=== PATIENT | male | born 1960 | race Caucasian/White ===

== ENCOUNTER → 2017-05-02 | Outpatient (CLI) | payer BC, OTHER ==
--- NOTE | 2017-05-02 23:37 | MRI ---
EXAM DATE: 05/02/2017 9:54 AM CDT. PROCEDURE: MR BRAIN WITHOUT THEN WITH IV CONTRAST. INDICATION: Multiple sclerosis. COMPARISON: None. TECHNIQUE: Multiplanar multisequence images of the brain were acquired after the administration of intravenous contrast. FINDINGS: No acute infarct or intracranial hemorrhage. No mass, mass effect, or midline shift. No abnormal intracranial enhancement. Small scattered foci of T2/FLAIR hyperintensity identified within the subcortical white matter of the right superior frontal gyrus, right frontal lobe, within the right splenium corpus callosum, and scattered in the left frontal lobe. No hydrocephalus. Internal carotid and vertebrobasilar flow voids are identified. Unremarkable orbits, paranasal sinuses, mastoid air cells, and calvarium. IMPRESSION: Minimal scattered white matter changes are nonspecific and may be seen with the given history of multiple sclerosis or with chronic microvascular angiopathy. No abnormal intracranial enhancement. Electronically signed by: Joe Regalado MD 05/02/2017 11:36 PM CDT
--- NOTE | 2017-05-02 23:45 | MRI ---
EXAM DATE: 05/02/2017 9:54 AM CDT. PROCEDURE: MR CERVICAL SPINE WITHOUT IV CONTRAST. INDICATION: Multiple sclerosis. COMPARISON: None. TECHNIQUE: Multiplanar T1 and T2 MRI images of the cervical were acquired without administration of intravenous contrast. FINDINGS: There is straightening of the normal cervical lordosis. The cervical vertebral bodies demonstrate normal height and stature. Moderate intervertebral disc space height loss C6-C7. Mild disc space height loss in the remainder of the cervical spine. Degenerative endplate changes C5-C6. Otherwise normal marrow signal. The cervical cord demonstrates normal signal and morphology. C2-C3: No significant disc bulge. No spinal canal or neural foraminal narrowing. C3-C4: Uncovertebral spurring and mild facet arthropathy contributes to moderate left foraminal stenosis. No significant right foraminal stenosis. C4-C5: Small central disc protrusion with a small annular fissure. No spinal canal stenosis. There is some edema within the left facet joint at this level likely related to degenerative facet arthropathy. No foraminal stenosis C5-C6: Disc bulge with osteophytic spurring effacing the ventral sac resulting in moderate spinal canal stenosis. Uncovertebral spurring and facet arthropathy results in severe right and moderate left foraminal stenoses. C6-C7: No spinal canal stenosis. Uncovertebral spurring contributes mild bilateral foraminal narrowing. C7-T1: Central disc protrusion superimposed on a disc bulge indents the ventral cord. Mild spinal canal narrowing. No foraminal stenosis. The soft tissues of the neck are unremarkable. IMPRESSION: No cord signal abnormality. Moderate multilevel degenerative changes of the cervical spine contributes to moderate spinal canal stenosis C5-C6. Severe right foraminal stenosis C5-C6. Disc osteophyte complex at C7-T1 indents the ventral cord. Electronically signed by: Joe Regalado MD 05/02/2017 11:44 PM CDT
== END | disposition home or self-care (01) ==
LOC: MRI 09:34
PROVIDERS: ATTEND Psychiatry & Neurology Neurology
DX: G35 Multiple sclerosis (principal)